=== PATIENT | male | born 1975 | race Caucasian/White ===

== ENCOUNTER 2018-02-01 15:30 | Inpatient (IN) | payer OTHER ==
[2018-02-01 16:54] VITALS: BMI 29.8
--- NOTE | 2018-02-01 20:05 | HP ---
COWS - Scale Resting Pulse: 0= [place] 80 or Below Sweatin=Flushed/Facial Moisture Restless Observation: 5= Unable to Sit Still Pupil Size: 2= Moderately Dilated (4 mm) Bone or Joint Aches: 0= None Runny Nose/ Eye Tearin= None GI Upset > 30mins: 1= Stomach Cramp Tremor Observation: 2= Slight Tremor Visible Yawning Observation: 0= None Anxiety or Irritability: 1=Feels Anxious/Irritable Goose Flesh Skin: 0=Smooth Skin COWS Score: 13 CIWA Score - CIWA Score Nausea/Vomitin-No Nausea/No Vomiting Muscle Tremors: 4-Moderate,w/Arms Extend Anxiety: 1-Mildly Anxious Agitation: 4-Moderately Restless Paroxysmal Sweats: 4-Forehead w/Sweat Beads Orientation: 0-Oriented Tacttile Disturbances: 0-None Auditory Disturbances: 0-None Visual Disturbances: 0-None Headache: 0-None Present CIWA-Ar Total Score: 13 Admission [facility] - HPI Chief Complaint: Here for heroin and alcohol withdrawal. Allergies/Adverse Reactions: Allergies Allergy/AdvReac Type Severity Reaction Status Date / Time No Known Allergies Allergy Verified 02/01/18 17:10 History of Present Illness: Heroin use since age 17. Uses IV heroin. Alcohol use since age 30. Does does not drink - usually drinks 4 days/week. IV Cocaine use since June 2017. Denies sharing needles or works. Past hx Suboxone use in detox. Past hx Methadone maintenance x 6 months @ [facility] in August 2017. . Denies hx seizures or blackouts. Asthma as a child. No other significant PMH/PSH. Denies mental health problems. Denies suicide or violent ideation. Search Terms: Al Mustafa, 1975 Search Date: 02/01/2018 07:57:52 PM Patient Name: Al Mustafa Date: 1975 Address[address] [place] [address] Sex: Male Rx Written Rx Dispensed Drug Quantity Days Supply Prescriber Name 02/19/2017 02/19/2017 suboxone 12 mg-3 mg sl film 5 5 Andrew Dominguez MD Exam Limitations: No Limitations - Ebola screening Have you traveled outside of the country in the last 21 days: No Have you had contact with anyone from an Ebola affected area: No Have you been sick,other than usual withdrawal symptoms: No Do you have a fever: No - Review of Systems Constitutional: Chills, Diaphoresis, Changes in sleep (Difficulty falling asleep ), Weight Stable EENT: reports: Blurred Vision (Wears glasses) Respiratory: reports: No Symptoms reported Cardiac: reports: No Symptoms Reported GI: reports: No Symptoms Reported : reports: No Symptoms Reported Musculoskeletal: reports: No Symptoms Reported Integumentary: reports: No Symptoms Reported Neuro: reports: No Symptoms reported Endocrine: reports: No Symptoms Reported Hematology: reports: No Symptoms Reported Psychiatric: reports: Judgement Intact, Orientated x3, Agitated, Anxious Patient History - Patient Medical History Hx Anemia: No Hx Asthma: Yes ( Last exacerbation was as a child) Hx Chronic Obstructive Pulmonary Disease (COPD): No Hx Cancer: No Hx Cardiac Disorders: No Hx Congestive Heart Failure: No Hx Hypertension: No Hx Hypercholesterolemia: No Hx Pacemaker: No HX Cerebrovascular Accident: No Hx Seizures: No Hx Dementia: No Hx Diabetes: No Hx Gastrointestinal Disorders: No Hx Liver Disease: Yes (Hep C without treatment ) Hx Genitourinary Disorders: No Hx Sexually Transmitted Disorders: No Hx Renal Disease (ESRD): No Hx Thyroid Disease: No Hx Human Immunodeficiency Virus (HIV): No (negative, last tested 4 months ago ) Hx Hepatitis C: Yes (Not treated ) Hx Depression: No Hx Suicide Attempt: No Hx Bipolar Disorder: No Hx Schizophrenia: No - Patient Surgical History Past Surgical History: Yes Hx Neurologic Surgery: No Hx Cataract Extraction: No Hx Cardiac Surgery: No Hx Lung Surgery: No Hx Breast Surgery: No Hx Breast Biopsy: No Hx Abdominal Surgery: No Hx Appendectomy: No Hx Cholecystectomy: No Hx Genitourinary Surgery: No Hx Section: No Hx Orthopedic Surgery: No Other Surgical History: TonSillectomy Anesthesia Reaction: No - PPD History Previous Implant?: Yes Documented Results: Negative w/proof Implanted On Prior R Admission?: Yes Date: 08/26/17 Results: 0 MM - Smoking Cessation Smoking history: Current every day smoker Have you smoked in the past 12 months: Yes Aproximately how many cigarettes per day: 10 Cigars Per Day: 0 Hx Chewing Tobacco Use: No Initiated information on smoking cessation: Yes 'Breaking Loose' booklet given: 02/01/18 - Substance & Tx. History Hx Alcohol Use: Yes Hx Substance Use: Yes Substance Use Type: Alcohol, Cocaine, Heroin Hx Substance Use Treatment: Yes (detox, OTP programs) - Substances Abused Heroin Route: Injection Frequency: Daily Amount used: 4 BAGS Age of first use: 17 Date of Last Use: 02/01/18 Alcohol Route: Oral Frequency: 3-6 times per week Amount used: 1 PINT VODKA Age of first use: 30 Date of Last Use: 01/30/18 Cocaine Route: Injection Frequency: Daily Amount used: $60-80 Age of first use: 42 Date of Last Use: 01/31/18 Family Disease History - Family Disease History Family Disease History: [place]: Mother (, Cancer ), Other: Father (, homocide), Mother Admission Physical Exam [facility] - Vital Signs Vital Signs: Vital Signs - 24 hr 02/01/18 16:53 Temperature 96.4 F L Pulse Rate 67 Respiratory 20 Rate Blood Pressure 141/88 - Physical General Appearance: Yes: Nourished, Mild Distress, Tremorous, Sweating, Anxious HEENTM: Yes: EOMI, Normocephalic, Normal Voice, PIETER (4 mm), Pharynx Normal, Other (Dry mucous membranes) Respiratory: Yes: Chest Non-Tender, Lungs Clear Neck: Yes: No masses,lesions,Nodules, Supple Breast: Yes: Breast Exam Deferred Cardiology: Yes: Regular Rhythm, Regular Rate, S1, S2 Abdominal: Yes: Non Tender, Flat, Soft, Increased Bowel Sounds Genitourinary: Yes: Within Normal Limits Back: Yes: Normal Inspection Musculoskeletal: Yes: full range of Motion, Gait Steady Extremities: Yes: Normal Capillary Refill, Normal Range of Motion, Tremors (of hands upon extension) Neurological: Yes: restaurant culinary manager II-XII NML intact, Fully Oriented, Alert, Motor Strength 5/5, Normal Mood/Affect, Normal Response Integumentary: Yes: Normal Color, Dry (Decreased skin turgor. Dry mucous membranes.), Warm, Track [place] (Old and new track [place] on arms. (L) antecubital area w/ increased inuration of 8 mm. Non-tender) - Diagnostic (1) History of asthma Current Visit: No Status: Resolved (2) Dehydration Current Visit: Yes Status: Acute (3) Alcohol dependence with uncomplicated withdrawal Current Visit: Yes Status: Acute (4) Cocaine dependence Current Visit: Yes Status: Chronic Qualifiers: Substance use status: uncomplicated Qualified Code(s): F14.20 - Cocaine dependence, uncomplicated (5) Nicotine dependence Current Visit: Yes Status: Chronic Qualifiers: Nicotine product type: cigarettes Substance use status: uncomplicated Qualified Code(s): F17.210 - Nicotine dependence, cigarettes, uncomplicated (6) Opioid dependence with withdrawal Current Visit: Yes Status: Acute Cleared for Admission S - Detox or Rehab [facility] Level of Care: Medically Managed Detox Regimen/Protocol: Methadone/Valium S Breath Alcohol Content Breath Alcohol Content: 0 Urine Drug Screen - Results Drug Screen Negative: No Urine Drug Screen Results: MARK-Cocaine, OPI-Opiates
[2018-02-01] MEDS ORDERED: IBUPROFEN 400 MG TABLET (FP) PO PRN (20:40)
[2018-02-01] MEDS ORDERED: METHADONE HCL 10 MG TABLET (FOR DETOX USE ONLY) PO ONE ×2 (20:40→23:00)
[2018-02-01] MEDS ORDERED: MAG HYDROX/AL HYDROX/SIMETH 30 ML UNIT-DOSE CUP PO PRN (20:40)
[2018-02-01] MEDS ORDERED: MAGNESIUM HYDROX 2400MG/30ML ORAL SUSPENSION 30 ML CUP PO PRN (20:40)
[2018-02-01] MEDS ORDERED: guaiFENesin/D-METHORPHAN HB 10 ML UNIT-DOSE CUPS PO PRN (20:40)
[2018-02-01] MEDS ORDERED: hydrOXYzine PAMOATE 50 MG CAPSULE (FP) PO PRN (20:40)
[2018-02-01] MEDS ORDERED: diazePAM 5 MG TABLET PO ONE (20:40)
[2018-02-01] MEDS ORDERED: NICOTINE POLACRILEX 2 MG GUM BUC PRN (20:40)
[2018-02-01] MEDS ORDERED: ACETAMINOPHEN 325 MG TABLET (FP) PO PRN (20:40)
[2018-02-01] MEDS ORDERED: P-EPHED 60MG/TRIPROLIDI 2.5MG TABLET PO PRN (20:40)
[2018-02-01] MEDS ORDERED: MENTHOL/PHENOL 1 EACH UD MM PRN (20:40)
[2018-02-01] MEDS ORDERED: LOPERAMIDE HCL 2 MG CAPSULE PO PRN (20:40)
[2018-02-01] MEDS ORDERED: MAGNESIUM CITRATE 300 ML BOTTLE PO PRN (20:40)
[2018-02-01] MEDS ORDERED: MELATONIN 5 MG TABLETS PO PRN (22:00)
[2018-02-01] MEDS: THIAMINE HCL 100 MG TABLET (FP) PO SCH (22:46)
[2018-02-01] MEDS: BACITRACIN 15 GM TUBE TOPICAL OINTMENT TP SCH (22:46)
[2018-02-01] MEDS: diazePAM 5 MG TABLET PO SCH (22:46)
[2018-02-01 23:51] LABS: URINE APPEARANCE CLEAR; URINE BILIRUBIN NEGATIVE (<2.0 mg/dL); URINE COLOR LTYELLOW; URINE GLUCOSE (UA) NEGATIVE (NEGATIVE); URINE KETONE NEGATIVE (NEGATIVE); URINE LEUK ESTERASE NEGATIVE (NEGATIVE); URINE NITRITE NEGATIVE (NEGATIVE); URINE PROTEIN NEGATIVE (NEGATIVE); URINE UROBILINOGEN NEGATIVE mg/dL (0.2-1.0)
[2018-02-02] MEDS: diazePAM 5 MG TABLET PO SCH ×3 (05:57→22:09)
[2018-02-02] MEDS ORDERED: METHADONE HCL 10 MG TABLET (FOR DETOX USE ONLY) PO SCH (10:00)
[2018-02-02 10:26] LABS: HEMATOCRIT 42.7 % (35.4-49); HEMOGLOBIN 13.5 GM/dL (11.7-16.9); MCH 23.5 pg (25.7-33.7); MCHC 31.6 g/dl (32.0-35.9); MEAN CELL VOLUME 74.4 fl (80-96); MEAN PLT VOLUME 9.7 fl (7.5-11.1); PLATELET COUNT 216 K/MM3 (134-434); RBC 5.73 M/mm3 (4.00-5.60); WHITE BLOOD COUNT 7.8 K/mm3 (4.0-10.0)
[2018-02-02] MEDS: BACITRACIN 15 GM TUBE TOPICAL OINTMENT TP SCH ×2 (10:40→22:09)
[2018-02-02] MEDS: PRENATAL VITAMINS W/ FOLIC ACID TABLET (FP) PO SCH (10:51)
[2018-02-02] MEDS: diazePAM 5 MG TABLET PO PRN (10:51)
[2018-02-02] MEDS: NICOTINE 14 MG/24 HOURS TOPICAL PATCH TD SCH (10:51)
--- NOTE | 2018-02-02 11:19 | CONSULT ---
[facility] Psychiatric Consult - Data Date of interview: 02/02/18 Admission source: [facility] Identifying data: Patient is a 42 year old single male, father of one, unemployed (denies receiving assistance), and is currently homeless. This is one of multiple admissions for detox. Pt. admiteted to for cocaine and opiate dependence. Substance Abuse History: Smoking Cessation. Smoking history: Current every day smoker. Have you smoked in the past 12 months: Yes. Aproximately how many cigarettes per day: 10. Cigars Per Day: 0. Hx Chewing Tobacco Use: No. Initiated information on smoking cessation: Yes. 'Breaking Loose' booklet given : 02/01/18. - Substance & Tx. History. Hx Alcohol Use: Yes. Hx Substance Use : Yes. Substance Use Type: Alcohol, Cocaine, Heroin. Hx Substance Use Treatment: Yes (detox, OTP programs). - Substances Abused. Heroin. Route: Injection. Frequency: Daily. Amount used: 4 BAGS. Age of first use: 17. Date of Last Use: 02/01/18. Alcohol. Route: Oral. Frequency: 3-6 times per week. Amount used: 1 PINT VODKA. Age of first use: 30. Date of Last Use: 01/30/18. Cocaine. Route: Injection. Frequency: Daily. Amount used: $60- 80. Age of first use: 42. Date of Last Use: 01/31/18 Medical History: Asthma, Hep C, Tonsillectomy Psychiatric History: Patient denies h/o psychiatric hospitalization. Most recent outpatient psychiatric services was provided in August of 2017 at [facility]. States he was prescribed buspar, vivitrol, and mirtzapine. Pt. was referred to another psychiatrist in August of 2017 but never discontinued treatment on his own. Pt. reports taking mirtzapine and buspar for four months. Last took medications several weeks ago. States medications were effective and is requesting to restart. Pt. denies h/o suicide attempt. Physical/Sexual Abuse/Trauma History: denies. Mental Status Exam - Mental Status Exam Alert and Oriented to: Time, Place, Person Cognitive Function: Good Patient Appearance: Well Groomed Mood: Euthymic Affect: Appropriate, Mood Congruent Patient Behavior: Appropriate, Cooperative Speech Pattern: Clear, Appropriate Voice Loudness: Normal Thought Process: Intact, Goal Oriented Thought Disorder: Not Present Hallucinations: Denies Suicidal Ideation: Denies Homicidal Ideation: Denies Insight/Judgement: Poor Sleep: Poorly Appetite: Fair Muscle strength/Tone: Normal Gait/Station: Normal Psychiatric Findings - Problem List ([place] 1, 2,3) (1) Alcohol dependence with uncomplicated withdrawal Current Visit: Yes Status: Acute (2) Opioid dependence with withdrawal Current Visit: Yes Status: Acute (3) Cocaine dependence Current Visit: Yes Status: Chronic Qualifiers: Substance use status: uncomplicated Qualified Code(s): F14.20 - Cocaine dependence, uncomplicated (4) Nicotine dependence Current Visit: Yes Status: Chronic Qualifiers: Nicotine product type: cigarettes Substance use status: uncomplicated Qualified Code(s): F17.210 - Nicotine dependence, cigarettes, uncomplicated (5) Substance induced mood disorder Current Visit: Yes Status: Acute (6) Substance-induced sleep disorder Current Visit: Yes Status: Acute - Initial Treatment Plan Initial Treatment Plan: Psychoeducation provided. Detoxification in progress. Will order buspar 15mg BID + Mirtzapine 15mg qhs. Benefits and side effects discussed. Verbal consent given.
[2018-02-02 11:31] LABS: CHLORIDE 99 mmol/L (98-107); POTASSIUM 4.2 mmol/L (3.5-5.1); SODIUM 138 mmol/L (136-145)
[2018-02-02 11:38] LABS: ALBUMIN 3.4 g/dl (3.4-5.0); ALK PHOS 63 U/L (45-117); ANION GAP 8 MMOL/L (8-16); BILIRUBIN,TOTAL 0.5 mg/dL (0.2-1.0); BLOOD UREA NITROGEN 16 mg/dL (7-18); CO2 31 mmol/L (21-32); CREATININE 1.1 mg/dL (0.7-1.3); GLUCOSE,RANDOM 79 mg/dL (74-106); SGOT/AST 42 U/L (15-37); SGPT/ALT 67 U/L (12-78); TOT PROT 7.2 g/dl (6.4-8.2)
--- NOTE | 2018-02-02 14:00 | PN ---
[facility] CIWA - CIWA Score Nausea/Vomitin-Mild Nausea/No Vomiting Muscle Tremors: 4-Moderate,w/Arms Extend Anxiety: 3 Agitation: 3 Paroxysmal Sweats: 1-Minimal Palms Moist Orientation: 0-Oriented Tacttile Disturbances: 1-Very Mild Itch/Numbness Auditory Disturbances: 0-None Visual Disturbances: 0-None Headache: 0-None Present CIWA-Ar Total Score: 13 [facility] COWS - Scale Resting Pulse: 0= [place] 80 or Below Sweatin= Chills/Flushing Restless Observation: 1= Difficult to Sit Still Pupil Size: 0= Normal to Room Light Bone or Joint Aches: 2= Severe Diffuse Aches Runny Nose/ Eye Tearin= Runny Nose/Eyes GI Upset > 30mins: 2= Nausea/Diarrhea Tremor Observation of Outstretched Hands: 2= Slight Tremor Visible Yawning Observation: 1= 1-2x During Session Anxiety or Irritability: 2=Irritable/Anxious Goose Flesh Skin: 0=Smooth Skin COWS Score: 13 [facility] Progress Note (SOAP) Subjective: sweat tremor restlessness body ache joints p ain Objective: 02/02/18 14:05 Vital Signs Temperature 97.6 F 02/02/18 13:12 Pulse Rate 73 02/02/18 13:12 Respiratory Rate 18 02/02/18 13:12 Blood Pressure 138/81 02/02/18 13:12 O2 Sat by Pulse Oximetry (%) Laboratory Last Values WBC 7.8 K/mm3 (4.0-10.0) 02/02/18 07:00 RBC 5.73 M/mm3 (4.00-5.60) H 02/02/18 07:00 Hgb 13.5 GM/dL (11.7-16.9) 02/02/18 07:00 Hct 42.7 % (35.4-49) 02/02/18 07:00 MCV 74.4 fl (80-96) L 02/02/18 07:00 MCH 23.5 pg (25.7-33.7) L 02/02/18 07:00 MCHC 31.6 g/dl (32.0-35.9) L 02/02/18 07:00 RDW 16.0 % (11.9-15.9) H 02/02/18 07:00 Plt Count 216 K/MM3 (134-434) 02/02/18 07:00 MPV 9.7 fl (7.5-11.1) 02/02/18 07:00 Sodium 138 mmol/L (136-145) 02/02/18 07:00 Potassium 4.2 mmol/L (3.5-5.1) 02/02/18 07:00 Chloride 99 mmol/L (98-107) 02/02/18 07:00 Carbon Dioxide 31 mmol/L (21-32) 02/02/18 07:00 Anion Gap 8 MMOL/L (8-16) 02/02/18 07:00 BUN 16 mg/dL (7-18) 02/02/18 07:00 Creatinine 1.1 mg/dL (0.7-1.3) 02/02/18 07:00 Creat Clearance w eGFR > 60 (>60) 02/02/18 07:00 Random Glucose 79 mg/dL (74-106) 02/02/18 07:00 Calcium 9.0 mg/dL (8.5-10.1) 02/02/18 07:00 Total Bilirubin 0.5 mg/dL (0.2-1.0) 02/02/18 07:00 AST 42 U/L (15-37) H D 02/02/18 07:00 ALT 67 U/L (12-78) D 02/02/18 07:00 Alkaline Phosphatase 63 U/L (45-117) 02/02/18 07:00 Total Protein 7.2 g/dl (6.4-8.2) 02/02/18 07:00 Albumin 3.4 g/dl (3.4-5.0) 02/02/18 07:00 Urine Color Ltyellow 02/01/18 23:35 Urine Appearance Clear 02/01/18 23:35 Urine pH 7.0 (5.0-8.0) 02/01/18 23:35 Ur Specific [place] 1.013 (1.001-1.035) 02/01/18 23:35 Urine Protein Negative (NEGATIVE) 02/01/18 23:35 Urine Glucose (UA) Negative (NEGATIVE) 02/01/18 23:35 Urine Ketones Negative (NEGATIVE) 02/01/18 23:35 Urine Blood Negative (NEGATIVE) 02/01/18 23:35 Urine Nitrite Negative (NEGATIVE) 02/01/18 23:35 Urine Bilirubin Negative (<2.0 mg/dL) 02/01/18 23:35 Urine Urobilinogen Negative mg/dL (0.2-1.0) 02/01/18 23:35 Ur Leukocyte Esterase Negative (NEGATIVE) 02/01/18 23:35 RPR Titer Nonreactive (NONREACTIVE) 02/02/18 07:00 HIV 1&2 Antibody Screen Negative 02/01/18 07:00 HIV P24 Antigen Negative 02/01/18 07:00 lab noted Assessment: 02/02/18 14:05 withdrawal sx Plan: continue detox
--- NOTE | 2018-02-02 17:21 | EKG ---
Test Reason : Blood Pressure : / mmHG Vent. Rate : 068 BPM Atrial Rate : 068 BPM P-R Int : 162 ms QRS Dur : 086 ms QT Int : 416 ms P-R-T Axes : 056 071 058 degrees QTc Int : 442 ms SINUS RHYTHM WITH PREMATURE SUPRAVENTRICULAR COMPLEXES AND WITH OCCASIONAL PREMATURE VENTRICULAR COMPLEXES OTHERWISE NORMAL ECG Confirmed by MD STEF, HERIBERTO ([id number]) on 02/02/2018 5:21:55 PM Referred By: Confirmed By:HERIBERTO FINCH MD
[2018-02-02] MEDS: THIAMINE HCL 100 MG TABLET (FP) PO SCH (22:09)
[2018-02-02] MEDS: MIRTAZAPINE 15 MG TABLET (FP) PO SCH (22:09)
[2018-02-03] MEDS: diazePAM 5 MG TABLET PO SCH ×2 (10:50→22:13)
[2018-02-03] MEDS: BACITRACIN 15 GM TUBE TOPICAL OINTMENT TP SCH ×2 (10:50→22:13)
[2018-02-03] MEDS: PRENATAL VITAMINS W/ FOLIC ACID TABLET (FP) PO SCH (10:50)
[2018-02-03] MEDS: METHADONE HCL 5 MG TABLET (FOR DETOX USE ONLY) PO SCH (10:51)
[2018-02-03] MEDS: NICOTINE 14 MG/24 HOURS TOPICAL PATCH TD SCH (10:51)
--- NOTE | 2018-02-03 12:07 | PN ---
S CIWA - CIWA Score Nausea/Vomitin Muscle Tremors: 2 Anxiety: 2 Agitation: 1-Slight > Activity Paroxysmal Sweats: 3 Orientation: 0-Oriented Tacttile Disturbances: 1-Very Mild Itch/Numbness Auditory Disturbances: 0-None Visual Disturbances: 0-None Headache: 0-None Present CIWA-Ar Total Score: 11 [facility] COWS - Scale Resting Pulse: 0= [place] 80 or Below Sweatin= Chills/Flushing Restless Observation: 1= Difficult to Sit Still Pupil Size: 1= Pupils >than Normal Bone or Joint Aches: 1= Mild Discomfort Runny Nose/ Eye Tearin= Nasal Congestion GI Upset > 30mins: 1= Stomach Cramp Tremor Observation of Outstretched Hands: 1= Tremor [place], Not Seen Yawning Observation: 0= None Anxiety or Irritability: 1=Feels Anxious/Irritable Goose Flesh Skin: 0=Smooth Skin COWS Score: 8 [facility] Progress Note (SOAP) Subjective: feeling better, some sweats Objective: 02/03/18 12:05 Vital Signs Temperature 98.2 F 02/03/18 09:41 Pulse Rate 89 02/03/18 09:41 Respiratory Rate 18 02/03/18 09:41 Blood Pressure 135/80 02/03/18 09:41 O2 Sat by Pulse Oximetry (%) Laboratory Tests 02/01/18 02/01/18 02/02/18 07:00 23:35 07:00 WBC 7.8 RBC 5.73 H Hgb 13.5 Hct 42.7 MCV 74.4 L MCH 23.5 L MCHC 31.6 L RDW 16.0 H Plt Count 216 MPV 9.7 Sodium Potassium Chloride Carbon Dioxide Anion Gap BUN Creatinine Creat Clearance w eGFR Random Glucose Calcium Total Bilirubin AST ALT Alkaline Phosphatase Total Protein Albumin Urine Color Ltyellow Urine Appearance Clear Urine pH 7.0 Ur Specific [place] 1.013 Urine Protein Negative Urine Glucose (UA) Negative Urine Ketones Negative Urine Blood Negative Urine Nitrite Negative Urine Bilirubin Negative Urine Urobilinogen Negative Ur Leukocyte Esterase Negative RPR Titer HIV 1&2 Antibody Screen Negative HIV P24 Antigen Negative 02/02/18 02/02/18 07:00 07:00 WBC RBC Hgb Hct MCV MCH MCHC RDW Plt Count MPV Sodium 138 Potassium 4.2 Chloride 99 Carbon Dioxide 31 Anion Gap 8 BUN 16 Creatinine 1.1 Creat Clearance w eGFR > 60 Random Glucose 79 Calcium 9.0 Total Bilirubin 0.5 AST 42 H D ALT 67 D Alkaline Phosphatase 63 Total Protein 7.2 Albumin 3.4 Urine Color Urine Appearance Urine pH Ur Specific [place] Urine Protein Urine Glucose (UA) Urine Ketones Urine Blood Urine Nitrite Urine Bilirubin Urine Urobilinogen Ur Leukocyte Esterase RPR Titer Nonreactive HIV 1&2 Antibody Screen HIV P24 Antigen pt aox3 in nad ambulating Assessment: 02/03/18 12:06 withdrawal sx's Plan: cont. detox increase fluids
[2018-02-03] MEDS: MIRTAZAPINE 15 MG TABLET (FP) PO SCH (22:13)
[2018-02-03] MEDS: THIAMINE HCL 100 MG TABLET (FP) PO SCH (22:13)
[2018-02-04] MEDS: PRENATAL VITAMINS W/ FOLIC ACID TABLET (FP) PO SCH (10:43)
[2018-02-04] MEDS: METHADONE HCL 5 MG TABLET (FOR DETOX USE ONLY) PO SCH (10:43)
[2018-02-04] MEDS: NICOTINE 14 MG/24 HOURS TOPICAL PATCH TD SCH (10:44)
[2018-02-04] MEDS: BACITRACIN 0.9 GM PACKET TP SCH ×2 (10:44→22:34)
[2018-02-04] MEDS: diazePAM 5 MG TABLET PO SCH ×2 (10:44→23:01)
--- NOTE | 2018-02-04 14:09 | PN ---
[facility] Progress Note (SOAP) Subjective: joint pain body ache trouble sleep at night sweat tremor Objective: 02/04/18 14:08 Vital Signs Temperature 97.9 F 02/04/18 13:56 Pulse Rate 81 02/04/18 13:56 Respiratory Rate 18 02/04/18 13:56 Blood Pressure 147/85 02/04/18 13:56 O2 Sat by Pulse Oximetry (%) Laboratory Last Values WBC 7.8 K/mm3 (4.0-10.0) 02/02/18 07:00 RBC 5.73 M/mm3 (4.00-5.60) H 02/02/18 07:00 Hgb 13.5 GM/dL (11.7-16.9) 02/02/18 07:00 Hct 42.7 % (35.4-49) 02/02/18 07:00 MCV 74.4 fl (80-96) L 02/02/18 07:00 MCH 23.5 pg (25.7-33.7) L 02/02/18 07:00 MCHC 31.6 g/dl (32.0-35.9) L 02/02/18 07:00 RDW 16.0 % (11.9-15.9) H 02/02/18 07:00 Plt Count 216 K/MM3 (134-434) 02/02/18 07:00 MPV 9.7 fl (7.5-11.1) 02/02/18 07:00 Sodium 138 mmol/L (136-145) 02/02/18 07:00 Potassium 4.2 mmol/L (3.5-5.1) 02/02/18 07:00 Chloride 99 mmol/L (98-107) 02/02/18 07:00 Carbon Dioxide 31 mmol/L (21-32) 02/02/18 07:00 Anion Gap 8 MMOL/L (8-16) 02/02/18 07:00 BUN 16 mg/dL (7-18) 02/02/18 07:00 Creatinine 1.1 mg/dL (0.7-1.3) 02/02/18 07:00 Creat Clearance w eGFR > 60 (>60) 02/02/18 07:00 Random Glucose 79 mg/dL (74-106) 02/02/18 07:00 Calcium 9.0 mg/dL (8.5-10.1) 02/02/18 07:00 Total Bilirubin 0.5 mg/dL (0.2-1.0) 02/02/18 07:00 AST 42 U/L (15-37) H D 02/02/18 07:00 ALT 67 U/L (12-78) D 02/02/18 07:00 Alkaline Phosphatase 63 U/L (45-117) 02/02/18 07:00 Total Protein 7.2 g/dl (6.4-8.2) 02/02/18 07:00 Albumin 3.4 g/dl (3.4-5.0) 02/02/18 07:00 Urine Color Ltyellow 02/01/18 23:35 Urine Appearance Clear 02/01/18 23:35 Urine pH 7.0 (5.0-8.0) 02/01/18 23:35 Ur Specific [place] 1.013 (1.001-1.035) 02/01/18 23:35 Urine Protein Negative (NEGATIVE) 02/01/18 23:35 Urine Glucose (UA) Negative (NEGATIVE) 02/01/18 23:35 Urine Ketones Negative (NEGATIVE) 02/01/18 23:35 Urine Blood Negative (NEGATIVE) 02/01/18 23:35 Urine Nitrite Negative (NEGATIVE) 02/01/18 23:35 Urine Bilirubin Negative (<2.0 mg/dL) 02/01/18 23:35 Urine Urobilinogen Negative mg/dL (0.2-1.0) 02/01/18 23:35 Ur Leukocyte Esterase Negative (NEGATIVE) 02/01/18 23:35 RPR Titer Nonreactive (NONREACTIVE) 02/02/18 07:00 HIV 1&2 Antibody Screen Negative 02/01/18 07:00 HIV P24 Antigen Negative 02/01/18 07:00 lab noted Assessment: 02/04/18 14:09 withdrawal sx Plan: continue detox
[2018-02-04] MEDS: diazePAM 5 MG TABLET PO PRN (20:29)
[2018-02-04] MEDS: THIAMINE HCL 100 MG TABLET (FP) PO SCH (22:33)
[2018-02-04] MEDS: MIRTAZAPINE 15 MG TABLET (FP) PO SCH (22:33)
[2018-02-05] MEDS ORDERED: diazePAM 5 MG TABLET PO SCH (10:00)
[2018-02-05] MEDS ORDERED: METHADONE HCL 10 MG TABLET (FOR DETOX USE ONLY) PO SCH (10:00)
[2018-02-05] MEDS: NICOTINE 14 MG/24 HOURS TOPICAL PATCH TD SCH (10:16)
[2018-02-05] MEDS: PRENATAL VITAMINS W/ FOLIC ACID TABLET (FP) PO SCH (10:16)
[2018-02-05] MEDS: BACITRACIN 0.9 GM PACKET TP SCH (10:16)
--- NOTE | 2018-02-05 12:10 | PN ---
[facility] Progress Note (SOAP) Subjective: INTERRUPTED SLEEP BUT BETTER Objective: 02/05/18 12:09 Vital Signs Temperature 96 F L 02/05/18 09:51 Pulse Rate 80 02/05/18 09:51 Respiratory Rate 18 02/05/18 09:51 Blood Pressure 119/76 02/05/18 09:51 O2 Sat by Pulse Oximetry (%) Laboratory Tests 02/01/18 02/01/18 02/02/18 07:00 23:35 07:00 WBC 7.8 RBC 5.73 H Hgb 13.5 Hct 42.7 MCV 74.4 L MCH 23.5 L MCHC 31.6 L RDW 16.0 H Plt Count 216 MPV 9.7 Sodium Potassium Chloride Carbon Dioxide Anion Gap BUN Creatinine Creat Clearance w eGFR Random Glucose Calcium Total Bilirubin AST ALT Alkaline Phosphatase Total Protein Albumin Urine Color Ltyellow Urine Appearance Clear Urine pH 7.0 Ur Specific [place] 1.013 Urine Protein Negative Urine Glucose (UA) Negative Urine Ketones Negative Urine Blood Negative Urine Nitrite Negative Urine Bilirubin Negative Urine Urobilinogen Negative Ur Leukocyte Esterase Negative RPR Titer HIV 1&2 Antibody Screen Negative HIV P24 Antigen Negative 02/02/18 02/02/18 07:00 07:00 WBC RBC Hgb Hct MCV MCH MCHC RDW Plt Count MPV Sodium 138 Potassium 4.2 Chloride 99 Carbon Dioxide 31 Anion Gap 8 BUN 16 Creatinine 1.1 Creat Clearance w eGFR > 60 Random Glucose 79 Calcium 9.0 Total Bilirubin 0.5 AST 42 H D ALT 67 D Alkaline Phosphatase 63 Total Protein 7.2 Albumin 3.4 Urine Color Urine Appearance Urine pH Ur Specific [place] Urine Protein Urine Glucose (UA) Urine Ketones Urine Blood Urine Nitrite Urine Bilirubin Urine Urobilinogen Ur Leukocyte Esterase RPR Titer Nonreactive HIV 1&2 Antibody Screen HIV P24 Antigen PT AOX3 IN NAD AMBULATING Assessment: 02/05/18 12:10 WITHDRAWAL SX'S Plan: CONT. DETOX INCREASE FLUIDS D/C IN AM
[2018-02-05 14:40] VITALS: BP 157/94; PULSE 85; TEMP 99.1
--- NOTE | 2018-02-05 15:08 | DS ---
[facility] Detox Discharge Summary Admission Date: 02/01/18 Discharge Date: 02/05/18 - History Present History: Alcohol Dependence, Cocaine Dependence, Opioid Dependence - Physical Exam Results Vital Signs: Vital Signs Temperature 99.1 F 02/05/18 14:40 Pulse Rate 85 02/05/18 14:40 Respiratory Rate 16 02/05/18 14:40 Blood Pressure 157/94 02/05/18 14:40 O2 Sat by Pulse Oximetry (%) - Treatment Hospital Course: Detox Protocol Followed, Detoxed Safely, Responded well, Discharged Condition Good - Medication Discharge Medications: Ambulatory Orders hydrOXYzine PAMOATE [Vistaril -] 25 mg PO TID PRN 02/01/18 Albuterol Sulfate Inhaler - [Ventolin HFA Inhaler -] 2 inh PO Q4H PRN #1 inhaler 02/05/18 - Diagnosis (1) Alcohol dependence with uncomplicated withdrawal Current Visit: Yes Status: Chronic (2) Dehydration Current Visit: Yes Status: Acute (3) Opioid dependence with withdrawal Current Visit: Yes Status: Chronic (4) Cocaine dependence Current Visit: Yes Status: Chronic Qualifiers: Substance use status: uncomplicated Qualified Code(s): F14.20 - Cocaine dependence, uncomplicated (5) Nicotine dependence Current Visit: Yes Status: Chronic Qualifiers: Nicotine product type: cigarettes Substance use status: uncomplicated Qualified Code(s): F17.210 - Nicotine dependence, cigarettes, uncomplicated (6) Asthma Current Visit: No Status: Acute Qualifiers: Asthma severity: mild Asthma persistence: unspecified Asthma complication type: unspecified Qualified Code(s): J45.998 - Other asthma - AMA Did Patient Leave Against Medical Advice: No (pt d/c'ed early for entry in to rehab. )
[2018-02-06] MEDS ORDERED: METHADONE HCL 5 MG TABLET (FOR DETOX USE ONLY) PO SCH (06:00)
== END 2018-02-05 03:28 | disposition other institution (70) | DRG 773 ==
LOC: YASAS 15:30 → Y6N 18:51
PROC: HZ2ZZZZ Detoxification Services for Substance Abuse Treatment (ICD-10-PCS; principal; 2018-02-01)
DX: F11.23 Opioid dependence with withdrawal (principal); F10.230 Alcohol dependence with withdrawal, uncomplicated; F17.210 Nicotine dependence, cigarettes, uncomplicated; F19.24 Other psychoactive substance dependence with psychoactive substance-induced mood disorder; F19.282 Other psychoactive substance dependence with psychoactive substance-induced sleep disorder; E86.0 Dehydration; B18.2 Chronic viral hepatitis C; Z87.09 Personal history of other diseases of the respiratory system
CPT/HCPCS: 36415; 80053; 81003; 85027; 86593; 87389; 93005; 93010

== ENCOUNTER 2018-02-05 15:34 | Inpatient (IN) | payer OTHER ==
[2018-02-05] MEDS ORDERED: PNEUMOC 13-VAL CONJ-DIP CRM/PF 0.5 ML DISP.SYRIN IM ONE (15:57)
[2018-02-05] MEDS ORDERED: MAGNESIUM CITRATE 300 ML BOTTLE PO PRN (16:06)
[2018-02-05] MEDS ORDERED: MENTHOL/PHENOL 1 EACH UD MM PRN (16:06)
[2018-02-05] MEDS ORDERED: MAGNESIUM HYDROX 2400MG/30ML ORAL SUSPENSION 30 ML CUP PO PRN (16:06)
[2018-02-05] MEDS ORDERED: guaiFENesin/D-METHORPHAN HB 10 ML UNIT-DOSE CUPS PO PRN (16:06)
[2018-02-05] MEDS ORDERED: P-EPHED 60MG/TRIPROLIDI 2.5MG TABLET PO PRN (16:06)
[2018-02-05] MEDS ORDERED: MAG HYDROX/AL HYDROX/SIMETH 30 ML UNIT-DOSE CUP PO PRN (16:06)
[2018-02-05] MEDS ORDERED: ACETAMINOPHEN 325 MG TABLET (FP) PO PRN (16:06)
[2018-02-05] MEDS ORDERED: NICOTINE POLACRILEX 4 MG GUM BUC PRN (16:06)
[2018-02-05] MEDS ORDERED: LOPERAMIDE HCL 2 MG CAPSULE PO PRN (16:06)
[2018-02-05] MEDS ORDERED: ALBUTEROL SO4 8 GM HFA INHALER IH PRN (16:07)
[2018-02-05] MEDS: THIAMINE HCL 100 MG TABLET (FP) PO SCH (21:42)
[2018-02-05] MEDS: MELATONIN 5 MG TABLETS PO PRN (21:43)
[2018-02-06] MEDS: PRENATAL VITAMINS W/ FOLIC ACID TABLET (FP) PO SCH (10:13)
[2018-02-06] MEDS: NICOTINE 21 MG/24 HOURS TOPICAL PATCH TD SCH (10:13)
[2018-02-06] MEDS: IBUPROFEN 400 MG TABLET (FP) PO PRN (10:17)
[2018-02-06] MEDS ORDERED: PNEUMOCOCCAL 23 VACCINE 0.5 ML VIAL IM ONE (12:00)
[2018-02-06] MEDS: hydrOXYzine PAMOATE 50 MG CAPSULE (FP) PO PRN (21:29)
[2018-02-06] MEDS: MELATONIN 5 MG TABLETS PO PRN (21:29)
[2018-02-06] MEDS: THIAMINE HCL 100 MG TABLET (FP) PO SCH (21:29)
[2018-02-07] MEDS: NICOTINE 21 MG/24 HOURS TOPICAL PATCH TD SCH (09:56)
[2018-02-07] MEDS: IBUPROFEN 400 MG TABLET (FP) PO PRN ×2 (09:57→17:49)
[2018-02-07] MEDS: PRENATAL VITAMINS W/ FOLIC ACID TABLET (FP) PO SCH (10:18)
[2018-02-07] MEDS: MELATONIN 5 MG TABLETS PO PRN (21:37)
[2018-02-07] MEDS: hydrOXYzine PAMOATE 50 MG CAPSULE (FP) PO PRN (21:37)
[2018-02-07] MEDS: THIAMINE HCL 100 MG TABLET (FP) PO SCH (21:37)
--- NOTE | 2018-02-08 06:27 | HP ---
Psychiatrist Admission - Data Date of interview: 02/08/18 Admission source: 6N Identifying data: This is the first [facility] admission for this 42 years old single male, father of a 20 years old daughter, unemployed with no source of income, domiciled living with hid grandmother Medical History: Significant for bronchial asthma, hepatitis C and history of tonsillectomy, Smokes 10 cigarettes daily Psychiatric History: Reports that his first psychiatric contact was earlier this year when he saw the psychiatrist at [facility] on [address] in the [place] and diagnosed with PTSD, MDD and Anxiety. Claims that he was referred to a clinic for treatment. However he said that he was not accepted at that clinic because he was on Methadone. He was then referred to [facility] in August 2017 to get off methadone. There he saw a psychiatrist who prescribed him Buspar, Remeron and Vistaril. He saw NASRIN Mota on 02/02/18 while in detox and he was prescibed Buspar 15 mg po BID and Remeron 15 mg po HS. Denies previous psychiatric hospitalization or suicidal attempt. At present, reports feeling anxious and sleeping poorly Physical/Sexual Abuse/Trauma History: Denies history of emotional, physical or sexual abuse as well as DV relationship. No service Additional Comment: Reports history of 7 previous felony arrests/comvictions. No parole Vital Signs: Vital Signs - 24 hr 02/07/18 02/08/18 02/08/18 07:19 00:30 03:30 Temperature 98.1 F Pulse Rate 69 Respiratory 18 16 16 Rate Blood Pressure 152/95 Allergies/Adverse Reactions: Allergies Allergy/AdvReac Type Severity Reaction Status Date / Time No Known Allergies Allergy Verified 02/05/18 15:41 Date of last physical exam: 02/05/18 Concur with the findings of this exam: Yes - Substance Abuse/Tx History Hx Alcohol Use: Yes Hx Substance Use: Yes Substance Use Type: Alcohol (Started drinking alcohol at age 30, consumes one pint of vodka daily. Last drank on 01/30/18), Cocaine (Started using cocaine at age 42, consumes $60-80 worth daily. Last used on 01/31/18), Heroin (Started using heroin at age 17, consumes 4 bags daily. Last used on 02/01/18) Hx Substance Use Treatment: Yes (3 previous inpt detox admissions @ [facility]) Mental Status Exam - Mental Status Exam Alert and Oriented to: Time, Place, Person Cognitive Function: Fair Patient Appearance: Well Groomed Mood: Anxious Affect: Appropriate Patient Behavior: Cooperative Speech Pattern: Clear Voice Loudness: Normal Thought Process: Intact Thought Disorder: Present Hallucinations: Denies Suicidal Ideation: Denies Homicidal Ideation: Denies Insight/Judgement: Fair Sleep: Poorly Appetite: Fair Muscle strength/Tone: Normal Gait/Station: Normal Psychiatric Findings - Problem List ([place] 1, 2,3) (1) Alcohol dependence Current Visit: Yes Status: Acute (2) Opioid dependence Current Visit: Yes Status: Acute (3) Cocaine dependence Current Visit: No Status: Acute Qualifiers: Substance use status: uncomplicated Qualified Code(s): F14.20 - Cocaine dependence, uncomplicated (4) Nicotine dependence Current Visit: No Status: Chronic Qualifiers: Nicotine product type: cigarettes Substance use status: uncomplicated Qualified Code(s): F17.210 - Nicotine dependence, cigarettes, uncomplicated (5) Substance-induced anxiety disorder Current Visit: Yes Status: Acute (6) Substance-induced sleep disorder Current Visit: Yes Status: Acute (7) Asthma Current Visit: No Status: Chronic Qualifiers: Asthma severity: mild Asthma persistence: unspecified Asthma complication type: unspecified Qualified Code(s): J45.998 - Other asthma (8) Hepatitis C Current Visit: No Status: Chronic Qualifiers: Viral hepatitis chronicity: unspecified - Initial Treatment Plan Initial Treatment Plan: 1) Continue Buspar 15 mg po BID and Remeron 15 mg po HS. 2) Monitor progress
[2018-02-08] MEDS: PRENATAL VITAMINS W/ FOLIC ACID TABLET (FP) PO SCH (09:59)
[2018-02-08] MEDS: hydrOXYzine PAMOATE 50 MG CAPSULE (FP) PO PRN ×2 (10:00→14:12)
[2018-02-08] MEDS: IBUPROFEN 400 MG TABLET (FP) PO PRN (10:00)
[2018-02-08] MEDS: NICOTINE 21 MG/24 HOURS TOPICAL PATCH TD SCH (10:00)
--- NOTE | 2018-02-08 14:25 | PN ---
BHS Progress Note Note: Vital Signs Temperature 97.3 F L 02/08/18 07:09 Pulse Rate 68 02/08/18 07:09 Respiratory Rate 18 02/08/18 07:09 Blood Pressure 142/92 02/08/18 07:09 O2 Sat by Pulse Oximetry (%) c/o of back pain x 3 days. Denies any changes in ROM, trauma, urinary symptoms or paresthesia AOX3 no distress no adventitious breath sounds FULL ROM ambulating independently, + low back pain back pain lidocaine patch qd prn flexeril prn increase PO fluids ambulate continue to monitor
[2018-02-08] MEDS: LIDOCAINE 5% TOPICAL PATCH TP SCH (14:50)
[2018-02-08] MEDS ORDERED: PT OWN MED DRAWER 7, Y5N ONE (15:00)
[2018-02-08] MEDS: THIAMINE HCL 100 MG TABLET (FP) PO SCH (21:42)
[2018-02-08] MEDS: MELATONIN 5 MG TABLETS PO PRN (21:42)
[2018-02-08] MEDS: MIRTAZAPINE 15 MG TABLET (FP) PO SCH (21:42)
[2018-02-08] MEDS: CYCLOBENZAPRINE HCL 5 MG TABLET PO SCH (21:43)
[2018-02-08] MEDS: LIDOCAINE PATCH REMOVAL MC SCH (21:43)
[2018-02-09] MEDS: CYCLOBENZAPRINE HCL 5 MG TABLET PO SCH ×3 (06:48→21:46)
[2018-02-09] MEDS: IBUPROFEN 400 MG TABLET (FP) PO PRN (10:22)
[2018-02-09] MEDS: NICOTINE 21 MG/24 HOURS TOPICAL PATCH TD SCH (10:22)
[2018-02-09] MEDS: hydrOXYzine PAMOATE 50 MG CAPSULE (FP) PO PRN (10:22)
[2018-02-09] MEDS: LIDOCAINE 5% TOPICAL PATCH TP SCH (10:24)
[2018-02-09] MEDS: PRENATAL VITAMINS W/ FOLIC ACID TABLET (FP) PO SCH (10:24)
[2018-02-09] MEDS: MIRTAZAPINE 15 MG TABLET (FP) PO SCH (21:46)
[2018-02-09] MEDS: THIAMINE HCL 100 MG TABLET (FP) PO SCH (21:46)
[2018-02-09] MEDS: LIDOCAINE PATCH REMOVAL MC SCH (23:39)
[2018-02-10] MEDS: CYCLOBENZAPRINE HCL 5 MG TABLET PO SCH ×3 (06:00→21:41)
[2018-02-10] MEDS: PRENATAL VITAMINS W/ FOLIC ACID TABLET (FP) PO SCH (09:59)
[2018-02-10] MEDS: LIDOCAINE 5% TOPICAL PATCH TP SCH (10:00)
[2018-02-10] MEDS: NICOTINE 21 MG/24 HOURS TOPICAL PATCH TD SCH (10:00)
[2018-02-10] MEDS: hydrOXYzine PAMOATE 50 MG CAPSULE (FP) PO PRN (13:58)
[2018-02-10] MEDS: MELATONIN 5 MG TABLETS PO PRN (21:41)
[2018-02-10] MEDS: MIRTAZAPINE 15 MG TABLET (FP) PO SCH (21:41)
[2018-02-10] MEDS: THIAMINE HCL 100 MG TABLET (FP) PO SCH (21:41)
[2018-02-10] MEDS: LIDOCAINE PATCH REMOVAL MC SCH (22:10)
[2018-02-11] MEDS: CYCLOBENZAPRINE HCL 5 MG TABLET PO SCH (06:01)
[2018-02-11 06:48] VITALS: BP 147/91; PULSE 70; TEMP 97.8
[2018-02-11] MEDS: PRENATAL VITAMINS W/ FOLIC ACID TABLET (FP) PO SCH (09:05)
[2018-02-11] MEDS: LIDOCAINE 5% TOPICAL PATCH TP SCH (09:05)
[2018-02-11] MEDS: NICOTINE 21 MG/24 HOURS TOPICAL PATCH TD SCH (09:06)
== END 2018-02-11 09:55 | disposition left against medical advice (07) | DRG 770 ==
LOC: YASAS 15:34 → Y3W 15:35
PROVIDERS: ADMIT Psychiatry & Neurology Psychiatry; ATTEND Psychiatry & Neurology Psychiatry
PROC: HZ42ZZZ Group Counseling for Substance Abuse Treatment, Cognitive-Behavioral (ICD-10-PCS; principal; 2018-02-05)
DX: F11.20 Opioid dependence, uncomplicated (principal); F10.20 Alcohol dependence, uncomplicated; F14.20 Cocaine dependence, uncomplicated; F17.210 Nicotine dependence, cigarettes, uncomplicated; F19.280 Other psychoactive substance dependence with psychoactive substance-induced anxiety disorder; F19.282 Other psychoactive substance dependence with psychoactive substance-induced sleep disorder; J45.909 Unspecified asthma, uncomplicated; B18.2 Chronic viral hepatitis C; M54.41 Lumbago with sciatica, right side; M54.42 Lumbago with sciatica, left side
CPT/HCPCS: 90732; G0009

== ENCOUNTER 2018-04-09 17:07 | Inpatient (IN) | payer OTHER ==
[2018-04-09 21:22] VITALS: BMI 28.7
[2018-04-09] MEDS ORDERED: MELATONIN 5 MG TABLETS PO PRN (22:00)
--- NOTE | 2018-04-09 22:46 | HP ---
COWS - Scale Resting Pulse: 0= [place] 80 or Below Sweatin= Chills/Flushing Restless Observation: 5= Unable to Sit Still Pupil Size: 0= Normal to Room Light Bone or Joint Aches: 4=Acute Joint/Muscle Pain Runny Nose/ Eye Tearin= Nasal Congestion GI Upset > 30mins: 0= None Tremor Observation: 0= None Yawning Observation: 0= None Anxiety or Irritability: 2=Irritable/Anxious Goose Flesh Skin: 0=Smooth Skin COWS Score: 13 CIWA Score - Admission Criteria [facility]ASAS Guidelines: Admission for Medically Managed Detox: Requires at least one of the followin. CIWA greater than 12 2. Seizures within the past 24 hours 3. Delirium tremens within the past 24 hours 4. Hallucinations within the past 24 hours 5. Acute intervention needed for co occurring medical disorder 6. Acute intervention needed for co occurring psychiatric disorder 7. Severe withdrawal that cannot be handled at a lower level of care (continued vomiting, continued diarrhea, abnormal vital signs) requiring intravenous medication and/or fluids 8. Admission ROS [facility] Chief Complaint: C/O WITHDRAWAL SX'S FROM HEROIN. SEEKING DETOX TXMENT Allergies/Adverse Reactions: Allergies Allergy/AdvReac Type Severity Reaction Status Date / Time No Known Allergies Allergy Verified 04/09/18 21:47 History of Present Illness: 42 Y.O. MALE WITH HX/O OPIOID DEPENDENCE HERE FOR DETOX TXMENT. CLIENT IS KNOWN TO THIS PROGRAM. LAST HERE 01/2018. SELF REFERRED. REPORTS LONGEST CLEAN TIME 2 MONTHS THIS PAST YEAR. C/O WITHDRAWAL SX'S. COWS 13. DENIES HX/O SI/HI, AVH, DRUG OVER DOSE, SEIZURE D/O. CURRENTLY RESIDING WITH FAMILY. DENIES LEGALS UTOX + BZ AND MTD. CLIENT DENIES USE OR RECENT DETOX. STATES BENZO ARE PROBABLY CUT WITH THE HEROIN. HE STATES HE HAS BROUGHT STREET MTD IN THE PAST FEW DAYS NOT TO GET SICK PMHX- [facility] NO TXMENT. PSYCH-N ANXIETY, PTSD - Ebola screening Have you traveled outside of the country in the last 21 days: No (N) Have you had contact with anyone from an Ebola affected area: No Have you been sick,other than usual withdrawal symptoms: No Do you have a fever: No - Review of Systems Constitutional: Chills, Loss of Appetite, Malaise, Night Sweats, Changes in sleep EENT: reports: Nose Congestion Respiratory: reports: No Symptoms reported Cardiac: reports: No Symptoms Reported GI: reports: Poor Appetite, Poor Fluid Intake Musculoskeletal: reports: Back Pain, Joint Pain Integumentary: reports: No Symptoms Reported Neuro: reports: No Symptoms reported Endocrine: reports: No Symptoms Reported Hematology: reports: No Symptoms Reported Psychiatric: reports: Anxious, Depressed Other Systems: Reviewed and Negative Patient History - Patient Medical History Hx Anemia: No Hx Asthma: No Hx Chronic Obstructive Pulmonary Disease (COPD): No Hx Cancer: No Hx Cardiac Disorders: No Hx Congestive Heart Failure: No Hx Hypertension: No Hx Hypercholesterolemia: No Hx Pacemaker: No HX Cerebrovascular Accident: No Hx Seizures: No Hx Dementia: No Hx Diabetes: No Hx Gastrointestinal Disorders: No Hx Liver Disease: Yes (Hep C without treatment ) Hx Genitourinary Disorders: No Hx Sexually Transmitted Disorders: No Hx Renal Disease (ESRD): No Hx Thyroid Disease: No Hx Human Immunodeficiency Virus (HIV): No Hx Hepatitis C: Yes (Not treated ) Hx Depression: No Hx Suicide Attempt: No Hx Bipolar Disorder: No Hx Schizophrenia: No Other Medical History: PTSD, ANXIETY - Patient Surgical History Past Surgical History: Yes Hx Neurologic Surgery: No Hx Cataract Extraction: No Hx Cardiac Surgery: No Hx Lung Surgery: No Hx Breast Surgery: No Hx Breast Biopsy: No Hx Abdominal Surgery: No Hx Appendectomy: No Hx Cholecystectomy: No Hx Genitourinary Surgery: No Hx Section: No Hx Orthopedic Surgery: No Other Surgical History: TonSillectomy at age 6 Anesthesia Reaction: No - PPD History Previous Implant?: Yes Documented Results: Negative w/proof Implanted On Prior [facility] Admission?: Yes Date: 08/26/17 Results: 0 mm PPD to be Administered?: No - Smoking Cessation Smoking history: Current every day smoker Have you smoked in the past 12 months: Yes Aproximately how many cigarettes per day: 10 Cigars Per Day: 0 Hx Chewing Tobacco Use: No Initiated information on smoking cessation: Yes 'Breaking Loose' booklet given: 04/09/18 - Substance & Tx. History Hx Alcohol Use: No Hx Substance Use: Yes Substance Use Type: Heroin Hx Substance Use Treatment: Yes ([facility]) - Substances Abused Heroin Route: Injection Frequency: Daily Amount used: 6 bags daily Age of first use: 17 Date of Last Use: 04/09/18 Family Disease History - Family Disease History Family Disease History: [place]: Mother (, Cancer ), Other: Father (, homocide), Mother Admission Physical Exam [facility] - Vital Signs Vital Signs: Vital Signs - 24 hr 04/09/18 21:20 Temperature 98.1 F Pulse Rate 60 Respiratory 18 Rate Blood Pressure 151/125 H - Physical General Appearance: Yes: Appropriately Dressed, Moderate Distress, Tremorous ( FELT), Irritable, Anxious HEENTM: Yes: EOMI, Normocephalic, Normal Voice, PIETER, Pharynx Normal, Nasal Congestion Respiratory: Yes: Chest Non-Tender, Lungs Clear, Normal Breath Sounds, No Respiratory Distress, No Accessory Muscle Use Neck: Yes: No masses,lesions,Nodules, Supple, Trachea in good position Breast: Yes: Breast Exam Deferred Cardiology: Yes: Regular Rhythm, Regular Rate, S1, S2 Abdominal: Yes: Normal Bowel Sounds, Non Tender, Flat, Soft Genitourinary: Yes: Within Normal Limits (NO C/O) Back: Yes: Normal Inspection Musculoskeletal: Yes: full range of Motion, Gait Steady Extremities: Yes: Normal Range of Motion, Non-Tender, Tremors (FELT) Neurological: Yes: Fully Oriented, Alert, Motor Strength 5/5, Depressed Affect Integumentary: Yes: Dry, Warm, Track [place] Lymphatic: Yes: Within Normal Limits - Diagnostic (1) At risk for dehydration due to poor fluid intake Current Visit: Yes Status: Acute (2) Substance-induced anxiety disorder Current Visit: Yes Status: Suspected (3) Substance-induced sleep disorder Current Visit: Yes Status: Suspected (4) Hepatitis C Current Visit: Yes Status: Chronic Qualifiers: Viral hepatitis chronicity: unspecified (5) Nicotine dependence Current Visit: Yes Status: Chronic Qualifiers: Nicotine product type: cigarettes Substance use status: uncomplicated Qualified Code(s): F17.210 - Nicotine dependence, cigarettes, uncomplicated (6) Opioid dependence with withdrawal Current Visit: Yes Status: Acute Cleared for Admission [facility] - Detox or Rehab [facility] Level of Care: Medically Managed Detox Regimen/Protocol: Methadone Claeared for Rehab Admission: No [facility] Breath Alcohol Content Breath Alcohol Content: 0 Urine Drug Screen - Results Drug Screen Negative: No Urine Drug Screen Results: OPI-Opiates, BZO-Benzodiazepines, MTD-Methadone
[2018-04-09] MEDS ORDERED: MAG HYDROX/AL HYDROX/SIMETH 30 ML UNIT-DOSE CUP PO PRN (22:56)
[2018-04-09] MEDS ORDERED: ACETAMINOPHEN 325 MG TABLET (FP) PO PRN (22:56)
[2018-04-09] MEDS ORDERED: LOPERAMIDE HCL 2 MG CAPSULE PO PRN (22:56)
[2018-04-09] MEDS ORDERED: P-EPHED 60MG/TRIPROLIDI 2.5MG TABLET PO PRN (22:56)
[2018-04-09] MEDS ORDERED: NICOTINE POLACRILEX 2 MG GUM BC PRN (22:56)
[2018-04-09] MEDS ORDERED: MAGNESIUM HYDROX 2400MG/30ML ORAL SUSPENSION 30 ML CUP PO PRN (22:56)
[2018-04-09] MEDS ORDERED: MAGNESIUM CITRATE 300 ML BOTTLE PO PRN (22:56)
[2018-04-09] MEDS ORDERED: guaiFENesin/D-METHORPHAN HB 10 ML UNIT-DOSE CUPS PO PRN (22:56)
[2018-04-09] MEDS ORDERED: MENTHOL/PHENOL 1 EACH UD MM PRN (22:56)
[2018-04-09] MEDS ORDERED: IBUPROFEN 400 MG TABLET (FP) PO PRN (22:56)
[2018-04-09] MEDS ORDERED: METHADONE HCL 10 MG TABLET (FOR DETOX USE ONLY) PO ONE ×2 (23:00→23:15)
[2018-04-10 01:30] LABS: URINE APPEARANCE CLEAR; URINE BILIRUBIN NEGATIVE (<2.0 mg/dL); URINE COLOR DKYELLOW; URINE GLUCOSE (UA) NEGATIVE (NEGATIVE); URINE KETONE NEGATIVE (NEGATIVE); URINE LEUK ESTERASE NEGATIVE (NEGATIVE); URINE NITRITE NEGATIVE (NEGATIVE); URINE PROTEIN NEGATIVE (NEGATIVE)
[2018-04-10] MEDS: diazePAM 5 MG TABLET PO PRN ×2 (09:27→17:16)
[2018-04-10] MEDS ORDERED: METHADONE HCL 10 MG TABLET (FOR DETOX USE ONLY) PO ONE (10:00)
[2018-04-10] MEDS: PRENATAL VITAMINS W/ FOLIC ACID TABLET (FP) PO SCH (10:26)
[2018-04-10] MEDS: NICOTINE 14 MG/24 HOURS TOPICAL PATCH TD SCH (10:26)
[2018-04-10 10:47] LABS: HEMATOCRIT 41.8 % (35.4-49); MCH 23.3 pg (25.7-33.7); MCHC 31.1 g/dl (32.0-35.9); MEAN CELL VOLUME 75.1 fl (80-96); MEAN PLT VOLUME 10.2 fl (7.5-11.1); PLATELET COUNT 218 K/MM3 (134-434); RBC 5.56 M/mm3 (4.00-5.60); RDW 16.4 % (11.9-15.9); WHITE BLOOD COUNT 8.5 K/mm3 (4.0-10.0)
--- NOTE | 2018-04-10 10:50 | CONSULT ---
[facility] Psychiatric Consult - Data Date of interview: 04/10/18 Admission source: [facility] Identifying data: This is one of multiple admissions to [facility] [place] for this 42 y/ o AA male seeking detoxification treatment, on , for heroin dependence. Patient is single, a father of one, domiciled, unemployed and supported on welfare. Substance Abuse History: Confirmed daily intravenous injections of heroin. Abuse started, as per patient, around age 17. Additional details in current [facility] report : by the patient in this interview. Smoking history: Current every day smoker. Have you smoked in the past 12 months: Yes. Aproximately how many cigarettes per day: 10. Cigars Per Day: 0. Hx Chewing Tobacco Use: No. Initiated information on smoking cessation: Yes. 'Breaking Loose' booklet given : 04/09/18. - Substance & Tx. History. Hx Alcohol Use: No. Hx Substance Use: Yes. Substance Use Type: Heroin. Hx Substance Use Treatment: Yes ([facility]). - Substances Abused. Heroin. Route: Injection. Frequency: Daily. Amount used: 6 bags daily. Age of first use: 17. Date of Last Use: 04/09/18 Medical History: Remarkable for bronchial asthma, hepatitis C and a history of tonsillectomy (childhood). Psychiatric History: Patient denies history of psychiatric hospitalizations. Recent history of psychiatric contacts (2018). Records indicate that this patient was initially followed at [facility] program (previously maintained on vivitrol) prior to being referred to a local psychiatrist for management of depression (precipitant : of mother in 2017). Mr Mustafa presents with a history of multiple admissions to detox/rehabilitation facilities, which include [facility] and [facility]. It was at the latter institution that he was prescribed mirtazapine + buspirone. Diagnosed with MDD and PTSD. In this interview, the patient informs that he sees a psychiatrist at [facility] ([facility]) for medication management (remeron 15 mg/hs + buspar 15 mg/bid). No reported history of suicide attempts. Physical/Sexual Abuse/Trauma History: Not discussed in this session : patient declines. Additional Comment: Urine Drug Screen Results: OPI-Opiates, BZO-Benzodiazepines , MTD-Methadone. Noted. Mental Status Exam - Mental Status Exam Alert and Oriented to: Time, Place, Person Cognitive Function: Grossly Intact Patient Appearance: Unkempt, Disheveled Mood: Nervous, Withdrawn Affect: Mood Congruent, Constricted Patient Behavior: Fatigued, Cooperative (superficially cooperative, no eye contact) Speech Pattern: Clear Voice Loudness: Normal Thought Process: Goal Oriented Thought Disorder: Not Present Hallucinations: Denies Suicidal Ideation: Denies Homicidal Ideation: Denies Insight/Judgement: Poor Sleep: Poorly, Difficulty falling asleep Appetite: Fair Gait/Station: Other (not observed out of bed) Psychiatric Findings - Problem List ([place] 1, 2,3) (1) Opioid dependence with withdrawal Current Visit: Yes Status: Acute (2) Nicotine dependence Current Visit: Yes Status: Acute Qualifiers: Nicotine product type: cigarettes Substance use status: uncomplicated Qualified Code(s): F17.210 - Nicotine dependence, cigarettes, uncomplicated (3) Substance induced mood disorder Current Visit: Yes Status: Acute (4) Insomnia Current Visit: Yes Status: Acute Qualifiers: Insomnia type: unspecified Qualified Code(s): G47.00 - Insomnia, unspecified - Initial Treatment Plan Initial Treatment Plan: Psychoeducation. Sleep hygiene. Detoxification in progress. Group, supportive therapy. Medications : remeron 15 mg po hs. Side effects/benefits discussed with the patient. Mr Mustafa is in agreement with this careplan. Observation.
[2018-04-10 10:54] LABS: ALBUMIN 3.5 g/dl (3.4-5.0); ALK PHOS 73 U/L (45-117); ANION GAP 9 MMOL/L (8-16); BILIRUBIN,TOTAL 0.6 mg/dL (0.2-1); BLOOD UREA NITROGEN 10 mg/dL (7-18); CALCIUM 8.8 mg/dL (8.5-10.1); CHLORIDE 103 mmol/L (98-107); CO2 27 mmol/L (21-32); CREATININE 0.9 mg/dL (0.55-1.3); GLUCOSE,RANDOM 65 mg/dL (74-106); POTASSIUM 4.1 mmol/L (3.5-5.1); SGOT/AST 21 U/L (15-37); SGPT/ALT 31 U/L (13-61); SODIUM 139 mmol/L (136-145); TOT PROT 7.4 g/dl (6.4-8.2)
--- NOTE | 2018-04-10 12:55 | PN ---
BHS COWS - Scale Resting Pulse: 0= [place] 80 or Below Sweatin= Chills/Flushing Restless Observation: 1= Difficult to Sit Still Pupil Size: 0= Normal to Room Light Bone or Joint Aches: 2= Severe Diffuse Aches Runny Nose/ Eye Tearin= None GI Upset > 30mins: 0= None Tremor Observation of Outstretched Hands: 2= Slight Tremor Visible Yawning Observation: 1= 1-2x During Session Anxiety or Irritability: 2=Irritable/Anxious Goose Flesh Skin: 0=Smooth Skin COWS Score: 9 BHS Progress Note (SOAP) Subjective: PATIENT C/O INTERRUPTED SLEEP, FEELING TIRED AND ANXIOUS AND SHAKES. Objective: 04/10/18 12:53 Vital Signs Temperature 98.6 F 04/10/18 09:11 Pulse Rate 82 04/10/18 09:11 Respiratory Rate 18 04/10/18 09:11 Blood Pressure 138/90 04/10/18 09:11 O2 Sat by Pulse Oximetry (%) Laboratory Tests 04/10/18 04/10/18 04/10/18 01:00 08:00 08:00 WBC 8.5 RBC 5.56 Hgb 13.0 Hct 41.8 MCV 75.1 L MCH 23.3 L MCHC 31.1 L RDW 16.4 H Plt Count 218 MPV 10.2 Sodium Potassium Chloride Carbon Dioxide Anion Gap BUN Creatinine Creat Clearance w eGFR Random Glucose Calcium Total Bilirubin AST ALT Alkaline Phosphatase Total Protein Albumin Urine Color Dkyellow Urine Appearance Clear Urine pH 6.0 Ur Specific [place] 1.023 Urine Protein Negative Urine Glucose (UA) Negative Urine Ketones Negative Urine Blood Negative Urine Nitrite Negative Urine Bilirubin Negative Urine Urobilinogen 2.0 Ur Leukocyte Esterase Negative RPR Titer HIV 1&2 Antibody Screen Negative HIV P24 Antigen Negative 04/10/18 04/10/18 08:00 08:00 WBC RBC Hgb Hct MCV MCH MCHC RDW Plt Count MPV Sodium 139 Potassium 4.1 Chloride 103 Carbon Dioxide 27 Anion Gap 9 BUN 10 Creatinine 0.9 Creat Clearance w eGFR > 60 Random Glucose 65 L Calcium 8.8 Total Bilirubin 0.6 AST 21 ALT 31 Alkaline Phosphatase 73 Total Protein 7.4 Albumin 3.5 Urine Color Urine Appearance Urine pH Ur Specific [place] Urine Protein Urine Glucose (UA) Urine Ketones Urine Blood Urine Nitrite Urine Bilirubin Urine Urobilinogen Ur Leukocyte Esterase RPR Titer Nonreactive HIV 1&2 Antibody Screen HIV P24 Antigen PE: SKIN WARM, MILD MOISTURE ALERT AND ORIENTED X 3 EXT FULL ROM, +TREMORS AMB AD BARON ANXIOUS/IRRITABLE Assessment: 04/10/18 12:53 WITHDRAWAL SX Plan: CONTINUE DETOX ENCOURAGE ORAL FLUIDS CONTINUE TO MONITOR
--- NOTE | 2018-04-10 15:19 | EKG ---
Test Reason : Blood Pressure : / mmHG Vent. Rate : 054 BPM Atrial Rate : 054 BPM P-R Int : 172 ms QRS Dur : 080 ms QT Int : 436 ms P-R-T Axes : 044 068 082 degrees QTc Int : 413 ms NORMAL SINUS RHYTHM LEFT ATRIAL ENLARGEMENT PREMATURE VENTRICULAR COMPLEXES LEFT VENTRICULAR HYPERTROPHY NONSPECIFIC ST ABNORMALITY ABNORMAL ECG WHEN COMPARED WITH ECG OF 01-FEB-2018 20:56, PREMATURE SUPRAVENTRICULAR COMPLEXES ARE NO LONGER PRESENT Confirmed by Sebastián Baeza ([id number]) on 04/10/2018 3:19:09 PM Referred By: Confirmed By:Sebastián Baeza
[2018-04-10] MEDS: MIRTAZAPINE 15 MG TABLET (FP) PO SCH (22:36)
[2018-04-10] MEDS: THIAMINE HCL 100 MG TABLET (FP) PO SCH (22:36)
[2018-04-11] MEDS: diazePAM 5 MG TABLET PO PRN ×4 (08:26→22:14)
[2018-04-11] MEDS ORDERED: METHADONE HCL 5 MG TABLET (FOR DETOX USE ONLY) PO ONE (10:00)
[2018-04-11] MEDS: PRENATAL VITAMINS W/ FOLIC ACID TABLET (FP) PO SCH (10:18)
[2018-04-11] MEDS: NICOTINE 14 MG/24 HOURS TOPICAL PATCH TD SCH (10:19)
--- NOTE | 2018-04-11 15:48 | PN ---
BHS COWS - Scale Resting Pulse: 0= [place] 80 or Below Sweatin= Chills/Flushing Restless Observation: 3= Extraneous Movement Pupil Size: 0= Normal to Room Light Bone or Joint Aches: 2= Severe Diffuse Aches Runny Nose/ Eye Tearin= None GI Upset > 30mins: 2= Nausea/Diarrhea Tremor Observation of Outstretched Hands: 2= Slight Tremor Visible Yawning Observation: 1= 1-2x During Session Anxiety or Irritability: 2=Irritable/Anxious Goose Flesh Skin: 0=Smooth Skin COWS Score: 13 BHS Progress Note (SOAP) Subjective: Feeling tired, interrupted sleep Objective: 04/11/18 15:47 Last Vital Signs Temp Pulse Resp BP Pulse Ox 96.0 F L 65 18 130/76 04/11/18 13:20 04/11/18 13:20 04/11/18 13:20 04/11/18 13:20 Laboratory Tests 04/10/18 04/10/18 04/10/18 01:00 08:00 08:00 WBC 8.5 RBC 5.56 Hgb 13.0 Hct 41.8 MCV 75.1 L MCH 23.3 L MCHC 31.1 L RDW 16.4 H Plt Count 218 MPV 10.2 Sodium Potassium Chloride Carbon Dioxide Anion Gap BUN Creatinine Creat Clearance w eGFR Random Glucose Calcium Total Bilirubin AST ALT Alkaline Phosphatase Total Protein Albumin Urine Color Dkyellow Urine Appearance Clear Urine pH 6.0 Ur Specific [place] 1.023 Urine Protein Negative Urine Glucose (UA) Negative Urine Ketones Negative Urine Blood Negative Urine Nitrite Negative Urine Bilirubin Negative Urine Urobilinogen 2.0 Ur Leukocyte Esterase Negative RPR Titer HIV 1&2 Antibody Screen Negative HIV P24 Antigen Negative 04/10/18 04/10/18 08:00 08:00 WBC RBC Hgb Hct MCV MCH MCHC RDW Plt Count MPV Sodium 139 Potassium 4.1 Chloride 103 Carbon Dioxide 27 Anion Gap 9 BUN 10 Creatinine 0.9 Creat Clearance w eGFR > 60 Random Glucose 65 L Calcium 8.8 Total Bilirubin 0.6 AST 21 ALT 31 Alkaline Phosphatase 73 Total Protein 7.4 Albumin 3.5 Urine Color Urine Appearance Urine pH Ur Specific [place] Urine Protein Urine Glucose (UA) Urine Ketones Urine Blood Urine Nitrite Urine Bilirubin Urine Urobilinogen Ur Leukocyte Esterase RPR Titer Nonreactive HIV 1&2 Antibody Screen HIV P24 Antigen Labs reviewed Assessment: 04/11/18 15:48 Withdrawal symptoms Plan: Continue detox Encouraged PO water intake
[2018-04-11] MEDS: THIAMINE HCL 100 MG TABLET (FP) PO SCH (22:14)
[2018-04-11] MEDS: MIRTAZAPINE 15 MG TABLET (FP) PO SCH (22:14)
[2018-04-12] MEDS ORDERED: METHADONE HCL 5 MG TABLET (FOR DETOX USE ONLY) PO ONE (10:00)
[2018-04-12] MEDS: PRENATAL VITAMINS W/ FOLIC ACID TABLET (FP) PO SCH (10:28)
[2018-04-12] MEDS: NICOTINE 14 MG/24 HOURS TOPICAL PATCH TD SCH (10:29)
--- NOTE | 2018-04-12 14:40 | PN ---
S Progress Note (SOAP) Subjective: C/o continued anxiety but feeling better physically. Denies nausea/vomiting. Objective: A&O x3. Minimal tremors of hands. Gait steady. Pacing halls. 04/12/18 14:40 Vital Signs 04/12/18 04/12/18 09:15 13:32 Temperature 97.9 F 97.1 F L Pulse Rate 84 85 Respiratory 18 18 Rate Blood Pressure 123/86 131/88 Assessment: Continued withdrawal symptoms. Plan: Continue detox. Encourage increased water intake.
[2018-04-12] MEDS: diazePAM 5 MG TABLET PO PRN (18:35)
[2018-04-12] MEDS: MIRTAZAPINE 15 MG TABLET (FP) PO SCH (22:17)
[2018-04-12] MEDS: THIAMINE HCL 100 MG TABLET (FP) PO SCH (22:17)
[2018-04-13] MEDS ORDERED: METHADONE HCL 10 MG TABLET (FOR DETOX USE ONLY) PO ONE (10:00)
[2018-04-13] MEDS: PRENATAL VITAMINS W/ FOLIC ACID TABLET (FP) PO SCH (10:44)
[2018-04-13] MEDS: NICOTINE 14 MG/24 HOURS TOPICAL PATCH TD SCH (10:44)
--- NOTE | 2018-04-13 13:07 | PN ---
BHS Progress Note (SOAP) Subjective: Denies any symptoms, patient is anxious Objective: 04/13/18 13:04 Last Vital Signs Temp Pulse Resp BP Pulse Ox 98.4 F 84 18 125/68 04/13/18 10:08 04/13/18 10:08 04/13/18 10:08 04/13/18 10:08 Laboratory Tests 04/10/18 04/10/18 04/10/18 01:00 08:00 08:00 WBC 8.5 RBC 5.56 Hgb 13.0 Hct 41.8 MCV 75.1 L MCH 23.3 L MCHC 31.1 L RDW 16.4 H Plt Count 218 MPV 10.2 Sodium Potassium Chloride Carbon Dioxide Anion Gap BUN Creatinine Creat Clearance w eGFR Random Glucose Calcium Total Bilirubin AST ALT Alkaline Phosphatase Total Protein Albumin Urine Color Dkyellow Urine Appearance Clear Urine pH 6.0 Ur Specific [place] 1.023 Urine Protein Negative Urine Glucose (UA) Negative Urine Ketones Negative Urine Blood Negative Urine Nitrite Negative Urine Bilirubin Negative Urine Urobilinogen 2.0 Ur Leukocyte Esterase Negative RPR Titer HIV 1&2 Antibody Screen Negative HIV P24 Antigen Negative 04/10/18 04/10/18 08:00 08:00 WBC RBC Hgb Hct MCV MCH MCHC RDW Plt Count MPV Sodium 139 Potassium 4.1 Chloride 103 Carbon Dioxide 27 Anion Gap 9 BUN 10 Creatinine 0.9 Creat Clearance w eGFR > 60 Random Glucose 65 L Calcium 8.8 Total Bilirubin 0.6 AST 21 ALT 31 Alkaline Phosphatase 73 Total Protein 7.4 Albumin 3.5 Urine Color Urine Appearance Urine pH Ur Specific [place] Urine Protein Urine Glucose (UA) Urine Ketones Urine Blood Urine Nitrite Urine Bilirubin Urine Urobilinogen Ur Leukocyte Esterase RPR Titer Nonreactive HIV 1&2 Antibody Screen HIV P24 Antigen Labs reviewed Assessment: 04/13/18 13:04 Withdrawal symptoms Plan: Continue detox Encouraged PO water intake
[2018-04-13] MEDS: THIAMINE HCL 100 MG TABLET (FP) PO SCH (22:44)
[2018-04-13] MEDS: MIRTAZAPINE 15 MG TABLET (FP) PO SCH (22:44)
[2018-04-14] MEDS ORDERED: METHADONE HCL 5 MG TABLET (FOR DETOX USE ONLY) PO ONE (06:00)
[2018-04-14 06:24] VITALS: BP 141/89; PULSE 70; TEMP 97.8
--- NOTE | 2018-04-14 11:20 | DS ---
[facility] Detox Discharge Summary Admission Date: 04/09/18 Discharge Date: 04/14/18 - History Present History: Opioid Dependence Additional Comments: Detox stay uneventful. Patient completed detox successfully. Patient instructed to follow up with his PCP within 1-2 weeks. Pertinent Past History: Opioid dependence Hepatitis C Anxiety PTSD Nicotine dependence - Physical Exam Results Vital Signs: Vital Signs Temperature 97.8 F 04/14/18 06:23 Pulse Rate 70 04/14/18 06:23 Respiratory Rate 18 04/14/18 06:23 Blood Pressure 141/89 04/14/18 06:23 O2 Sat by Pulse Oximetry (%) Pertinent Admission Physical Exam Findings: Withdrawal symptoms Laboratory Tests 04/10/18 04/10/18 04/10/18 01:00 08:00 08:00 WBC 8.5 RBC 5.56 Hgb 13.0 Hct 41.8 MCV 75.1 L MCH 23.3 L MCHC 31.1 L RDW 16.4 H Plt Count 218 MPV 10.2 Sodium Potassium Chloride Carbon Dioxide Anion Gap BUN Creatinine Creat Clearance w eGFR Random Glucose Calcium Total Bilirubin AST ALT Alkaline Phosphatase Total Protein Albumin Urine Color Dkyellow Urine Appearance Clear Urine pH 6.0 Ur Specific [place] 1.023 Urine Protein Negative Urine Glucose (UA) Negative Urine Ketones Negative Urine Blood Negative Urine Nitrite Negative Urine Bilirubin Negative Urine Urobilinogen 2.0 Ur Leukocyte Esterase Negative RPR Titer HIV 1&2 Antibody Screen Negative HIV P24 Antigen Negative 04/10/18 04/10/18 08:00 08:00 WBC RBC Hgb Hct MCV MCH MCHC RDW Plt Count MPV Sodium 139 Potassium 4.1 Chloride 103 Carbon Dioxide 27 Anion Gap 9 BUN 10 Creatinine 0.9 Creat Clearance w eGFR > 60 Random Glucose 65 L Calcium 8.8 Total Bilirubin 0.6 AST 21 ALT 31 Alkaline Phosphatase 73 Total Protein 7.4 Albumin 3.5 Urine Color Urine Appearance Urine pH Ur Specific [place] Urine Protein Urine Glucose (UA) Urine Ketones Urine Blood Urine Nitrite Urine Bilirubin Urine Urobilinogen Ur Leukocyte Esterase RPR Titer Nonreactive HIV 1&2 Antibody Screen HIV P24 Antigen Labs reviewed - Treatment Hospital Course: Detox Protocol Followed, Detoxed Safely, Responded well, Discharged Condition Good - Medication Discharge Medications: Ambulatory Orders NK [No Known Home Medication] 04/09/18 - Diagnosis (1) Anxiety Status: Chronic (2) PTSD (post-traumatic stress disorder) Status: Chronic (3) Nicotine dependence Status: Chronic Qualifiers: Nicotine product type: cigarettes Substance use status: uncomplicated Qualified Code(s): F17.210 - Nicotine dependence, cigarettes, uncomplicated (4) Opioid dependence with withdrawal Status: Acute (5) Hepatitis C Status: Chronic Qualifiers: Viral hepatitis chronicity: unspecified - AMA Did Patient Leave Against Medical Advice: No (F/U with PCP within 1-2 weeks)
== END 2018-04-14 06:45 | disposition home or self-care (01) | DRG 773 ==
LOC: YASAS 17:07 → Y3N 22:59
PROC: HZ2ZZZZ Detoxification Services for Substance Abuse Treatment (ICD-10-PCS; principal; 2018-04-09)
DX: F11.23 Opioid dependence with withdrawal (principal); F17.210 Nicotine dependence, cigarettes, uncomplicated; F19.24 Other psychoactive substance dependence with psychoactive substance-induced mood disorder; F19.282 Other psychoactive substance dependence with psychoactive substance-induced sleep disorder; F43.10 Post-traumatic stress disorder, unspecified; F41.9 Anxiety disorder, unspecified; G47.00 Insomnia, unspecified; B18.2 Chronic viral hepatitis C; J45.909 Unspecified asthma, uncomplicated; Z91.89 Other specified personal risk factors, not elsewhere classified
CPT/HCPCS: 36415; 80053; 81003; 85027; 86593; 87389; 93005; 93010

== ENCOUNTER 2023-05-04 12:33 | Inpatient (IN) | payer OTHER ==
[2023-05-04 13:40] VITALS: BMI 23.2
[2023-05-04] MEDS ORDERED: LOPERAMIDE HCL 2 MG CAPSULE PO PRN (15:12)
[2023-05-04] MEDS ORDERED: ACETAMINOPHEN 325 MG TABLET (FP) PO PRN (15:12)
[2023-05-04] MEDS ORDERED: BENZONATATE 200 MG CAPSULE PO PRN (15:12)
[2023-05-04] MEDS ORDERED: ONDANSETRON *ODT* 4 MG TABLET SL PRN (15:12)
[2023-05-04] MEDS ORDERED: guaiFENesin 600 MG TABLET.ER (FP) PO PRN (15:12)
[2023-05-04] MEDS ORDERED: NICOTINE POLACRILEX 2 MG GUM BUC PRN (15:12)
[2023-05-04] MEDS ORDERED: POLYETHYLENE GLYCOL (HEALTHYLAX) 3350 17 GM PACKET PO PRN (15:12)
[2023-05-04] MEDS ORDERED: MAGNESIUM HYDROX 2400MG/30ML ORAL SUSPENSION 30 ML CUP PO PRN (15:12)
[2023-05-04] MEDS ORDERED: BISMUTH SUBSALICYLATE 524 MG/30 ML PO PRN (15:12)
[2023-05-04] MEDS ORDERED: MAG HYDROX/AL HYDROX/SIMETH 30 ML UNIT-DOSE CUP PO PRN (15:12)
[2023-05-04] MEDS ORDERED: DICYCLOMINE HCL 10 MG CAPSULE PO PRN (15:12)
[2023-05-04] MEDS ORDERED: IBUPROFEN 400 MG TABLET (FP) PO PRN (15:12)
[2023-05-04] MEDS ORDERED: BENZOCAINE/MENTHOL (CHLORASEPTIC ) LOZENGE MM PRN (15:12)
[2023-05-04] MEDS ORDERED: IBUPROFEN 600 MG TABLET (FP) PO PRN (15:12)
[2023-05-04] MEDS: MELATONIN 5 MG TABLETS PO SCH (22:25)
[2023-05-04] MEDS: THIAMINE HCL 100 MG TABLET (FP) PO SCH (22:25)
[2023-05-05] MEDS: METHOCARBAMOL 500 MG TABLET PO PRN ×2 (02:39→18:17)
[2023-05-05] MEDS: hydrOXYzine PAMOATE 25 MG CAPSULE (FP) PO PRN ×2 (02:39→18:17)
[2023-05-05] MEDS ORDERED: cloNIDine HCL 0.1 MG TABLET PO PRN (09:52)
[2023-05-05] MEDS ORDERED: methaDONE HCL 10 MG TABLET (FOR DETOX USE ONLY) PO ONE (09:52)
[2023-05-05] MEDS: PRENATAL VITAMINS W/ FOLIC ACID TABLET (FP) PO SCH (10:27)
[2023-05-05 10:32] LABS: HEMATOCRIT 29.9 % (35.4-49); HEMOGLOBIN 9.1 GM/dL (11.7-16.9); MCHC 30.6 g/dl (32.0-35.9); MEAN CELL VOLUME 63.7 fl (80-96); MEAN PLT VOLUME 8.6 fl (7.5-11.1); PLATELET COUNT 334 10^3/uL (134-434); RBC 4.69 M/mm3 (4.00-5.60); RDW 18.4 % (11.9-15.9); WHITE BLOOD COUNT 8.1 K/mm3 (4.0-10.0)
[2023-05-05 10:37] LABS: MCH 19.5 pg (25.7-33.7)
[2023-05-05 13:12] LABS: POTASSIUM 4.2 mmol/L (3.5-5.1)
[2023-05-05 13:14] LABS: CALCIUM 8.3 mg/dL (8.5-10.1)
[2023-05-05 13:18] LABS: CREATININE 0.8 mg/dL (0.55-1.3)
[2023-05-05 13:20] LABS: BILIRUBIN,TOTAL 0.7 mg/dL (0.2-1); TOT PROT 7.4 g/dl (6.4-8.2)
[2023-05-05] MEDS: THIAMINE HCL 100 MG TABLET (FP) PO SCH (22:50)
[2023-05-05] MEDS: MELATONIN 5 MG TABLETS PO SCH (22:50)
[2023-05-06 06:17] VITALS: TEMP 98
[2023-05-06 09:11] VITALS: BP 128/72; PULSE 70; RESP 16
[2023-05-06] MEDS: METHOCARBAMOL 500 MG TABLET PO PRN (09:42)
[2023-05-06] MEDS: hydrOXYzine PAMOATE 25 MG CAPSULE (FP) PO PRN (09:43)
[2023-05-06] MEDS: PRENATAL VITAMINS W/ FOLIC ACID TABLET (FP) PO SCH (09:43)
[2023-05-07] MEDS ORDERED: methaDONE HCL 10 MG TABLET (FOR DETOX USE ONLY) PO ONE (10:00)
[2023-05-09] MEDS ORDERED: methaDONE HCL 10 MG TABLET (FOR DETOX USE ONLY) PO ONE (10:00)
== END 2023-05-06 10:28 | disposition left against medical advice (07) | DRG 770 ==
LOC: YASAS 12:33 → Y3N 17:04
PROVIDERS: ADMIT Allergy & Immunology; ATTEND Surgery
PROC: HZ2ZZZZ Detoxification Services for Substance Abuse Treatment (ICD-10-PCS; principal; 2023-05-04)
DX: F11.23 Opioid dependence with withdrawal (principal); F14.20 Cocaine dependence, uncomplicated; F13.20 Sedative, hypnotic or anxiolytic dependence, uncomplicated; F17.210 Nicotine dependence, cigarettes, uncomplicated; D64.9 Anemia, unspecified; G47.00 Insomnia, unspecified; J45.909 Unspecified asthma, uncomplicated; Z86.19 Personal history of other infectious and parasitic diseases
CPT/HCPCS: 36415; 80053; 85027; 86780; 87635